=== PATIENT | female | born 1990 | race Hispanic/Latino ===

== ENCOUNTER 2024-10-27 12:47 | Emergency (ER) | payer OTHER ==
[~2024-10-27] VITALS: Ht 154.9 cm; Wt 64.0 kg
[2024-10-27] MEDS ORDERED: ondansetron HCL 4 MG/2 ML VIAL IV ONE ×2 (13:15→13:45)
[2024-10-27] MEDS ORDERED: NEXIUM20 MG PO (13:24)
[2024-10-27] MEDS ORDERED: OMEPRAZOLE20 MG PO ×2 (13:24→15:34)
[2024-10-27 13:26] LABS: BASOPHILS 0.6 % (0-2); HEMATOCRIT 42.2 % (35.0-50.0); HEMOGLOBIN 14.9 g/dL (12.0-18.0); LYMPHOCYTES 22.6 % (24-44); MCH 30.4 (27-36); MCHC 35.4 g/dl (30-36); MCV 85.8 fl (81-99); MONOCYTES 7.5 % (0-12); NEUTROPHILS 66.3 % (39-80); PLATELET COUNT 281 K/uL (140-440); RBC 4.92 M/ul (4.3-5.7); RDW 13.2 (10.5-15.0)
[2024-10-27 13:36] LABS: ALBUMIN 4.3 g/dL (3.4-5.0); ALBUMIN/GLOBULIN RATIO 1.34 (1.1-2.4); ANION GAP 12.7 (7-21); BILIRUBIN, TOTAL 0.5 ng/dL (0.2-1.0); BUN/CREATININE RATIO 18.07 (6.0-28.6); CALCIUM 8.9 mg/dL (8.5-10.1); CREATININE, SERUM 0.83 mg/dL (0.55-1.02); MAGNESIUM 2.7 mg/dL (1.8-2.4); POTASSIUM 3.7 mmol/L (3.5-5.1); PROTEIN, TOTAL 7.5 g/dL (6.4-8.2)
[2024-10-27] MEDS ORDERED: PANTOPRAZOLE SODIUM 40 MG/10 ML VIAL IV ONE (13:45)
[2024-10-27 15:02] LABS: BILIRUBIN, URINE NEGATIVE (negative); BLOOD/HGB, URINE LARGE (Negative); KETONE, URINE NEGATIVE (Negative); LEUK ESTERASE, URINE NEGATIVE (negative); NITRITE, URINE NEGATIVE (negative)
[2024-10-27 15:10] LABS: BACTERIA, URINE RARE /hpf (negative); CASTS, URINE NONE SEEN \\lpf; COLLECTION TYPE, URINE CLEAN CATCH; CRYSTALS, URINE NONE SEEN (0-1+); EPITHELIAL CELLS, URINE SQUAMOUS 1+ /lpf (0-1+); RED BLOOD CELLS, URINE 41-50 /hpf (0-5); REFLEX CULTURE, URINE No (No)
[2024-10-27] MEDS ORDERED: ONDANSETRON ODT8 MG PO (15:34)
[2024-10-27 15:51] VITALS: BP 106/76
== END 2024-10-27 15:53 | disposition home or self-care (01) ==
LOC: ED 12:47
PROVIDERS: Emergency Medicine
DX: Z76.0 Encounter for issue of repeat prescription (principal); R11.2 Nausea with vomiting, unspecified; R10.11 Right upper quadrant pain; K21.9 Gastro-esophageal reflux disease without esophagitis; Z88.0 Allergy status to penicillin; Z79.899 Other long term (current) drug therapy
CPT/HCPCS: 36415; 71045; 80053; 81001; 83690; 83735; 84703; 85025; 96374; 96375; 99284-25; J2405; J2470